=== PATIENT | male | born 1985 | race Caucasian/White ===

== ENCOUNTER 2021-12-07 11:55 | Emergency (ER) | payer OTHER, SELFPAY ==
[2021-12-07 12:02] VITALS: BP 143/81; PULSE 92; RESP 20; TEMP 36.7; O2SAT 97
--- NOTE | 2021-12-07 12:11 | ECG_ITS ---
Measurements Intervals [place] Rate: 93 P: 62 RI: 160 QRS: -10 QRSD: 105 T: 30 QT: 331 QTc: 413 Interpretive Statements SINUS RHYTHM POSSIBLE LEFT ATRIAL ENLARGEMENT [-0.1mV P WAVE IN V1/V2] INCOMPLETE RIGHT BUNDLE BRANCH BLOCK [90+ ms QRS DURATION, TERMINAL R IN V1/V2, 40+ ms S IN I/aVL/V4/V5/V6] NO PREVIOUS ECG AVAILABLE FOR COMPARISON Electronically Signed On 12-07-2021 15:07:16 CDT by Jackie Schumacher M.D.
--- NOTE | 2021-12-07 12:13 | ED.CHESTPAIN ---
HPI - Chest Pain General Chief Complaint: Chest Pain Stated Complaint: Chest pain with breathing Time Seen by Provider: 12/07/21 12:13 Source: patient Mode of arrival: ambulatory Limitations: no limitations History of Present Illness HPI narrative: Mr. De La Fuente is a 36-year-old male patient presenting to the clinic today with complaints of left-sided upper chest pain x48 hours. He reports no radiation of pain and denies any shortness of breath. States that the pain is worse with deep inspiration but is alleviated when he puts his arm behind his head. He does do a lot of heavy lifting at work. He reports he has high anxiety level. Related Data Allergies Allergy/AdvReac Type Severity Reaction Status Date / Time prednisone AdvReac Unknown Unknown Verified 12/07/21 12:28 Review of Systems Review of Systems: Pertinent positives per HPI. Patient denies any fever, chills, rash, headache, visual changes, dizziness, cough, runny nose, sore throat, shortness of breath, palpitations, nausea, vomiting, diarrhea, constipation, abdominal pain, or any urinary issues. PMFSH Comments At the time of my signature, I reviewed and agree with the nursing past medical, surgical, social, and family history. There is no relevant family history pertinent to the patient complaint. Exam Narrative: General: Well-developed, well nourished, in no apparent distress Head: Normocephalic, atraumatic. Chest: Even rise and fall the chest wall, no swelling or bruising noted, tender to palpation over the left upper anterior chest wall Cardio: Regular rate and rhythm, s1 and s2 normal, no murmur appreciated. Resp: Clear to auscultation bilaterally, no rhonchi, rales, wheezing or rubs. Extremities: No deformity, no edema, no cyanosis, capillary refill less than 2 seconds, peripheral pulses palpable and strong. Integumentary: [place], warm, and dry, intact without lesion, no rashes. Course Course Emergency Course: Portions of this record may have been created with voice recognition software. Level of Care: Express Care Visit Vital Signs Vital signs: Vital Signs Temperature 36.7 C 12/07/21 12:02 Pulse Rate 92 12/07/21 12:02 Respiratory Rate 20 12/07/21 12:02 Blood Pressure 143/81 H 12/07/21 12:02 Pulse Oximetry 97 12/07/21 12:02 Oxygen Delivery Room Air 12/07/21 12:02 Temperature 36.7 C 12/07/21 12:02 Pulse Rate 92 12/07/21 12:02 Respiratory Rate 20 12/07/21 12:02 Blood Pressure 143/81 H 12/07/21 12:02 Pulse Oximetry 97 12/07/21 12:02 Oxygen Delivery Room Air 12/07/21 12:02 Vital signs reviewed MDM - Chest Pain MDM Narrative Medical decision making narrative: At the time of visit patient is resting comfortably on the exam table. EKG was performed and shows normal sinus rhythm with a heart rate of 93 bpm without ectopy. I suspect the patient has acute chest wall pain. He is concerned that he may have pleurisy. I will going give him prescription for some prednisone. He reports that prednisone makes him loopy but that was when he was a lot younger and feels as though he can tolerate it now. Supportive measures were discussed with the patient he voiced understanding of discharge instructions and agrees to treatment plan. Differential Diagnosis Differential diagnosis: Likely pneumothorax, stable angina, unstable angina pectoris, atypical chest pain, st elevation myocardial infarction, costochondritis, chest pain and other (Pleurisy) ECG Data EKG #1: Attestation: I personally reviewed and interpreted this ECG as follows: ECG completion date: 12/07/21 ECG completion time: 12:19 Prior ECG tracings: not available for review Interpretation: EKG was obtained and shows normal sinus rhythm heart rate 93 bpm without ectopy. NH interval 160 ms, QRS durations 105 ms, QT?QTc is 331-382 ms, P?RR?T axes 62?-10?30 Discharge Plan Discharge Clinical Impression: Acute chest wall pain Patient
== END 2021-12-07 12:30 | disposition home or self-care (01) ==
PROVIDERS: Emergency Provider Nurse Practitioner Family
DX: R07.89 Other chest pain (principal); Z86.16 Personal history of COVID-19
CPT/HCPCS: 93005; 99203; G0463